=== PATIENT | female | born 1960 | race Caucasian/White ===

== ENCOUNTER 2020-07-01 12:58 | Outpatient (CLI) | payer BC, SELFPAY ==
--- NOTE | ~2020-07-01 | MMUS_ITS ---
EXAMINATION: MM diagnostic mammo implant BI, US breast LT complete HISTORY: Diffuse left breast pain TECHNIQUE: Craniocaudal, mediolateral, and mediolateral oblique 3-D tomosynthesis images with implant displacement of the breasts were performed and synthetic 2-D images were generated. Craniocaudal, m ediolateral oblique, and mediolateral views of the breasts without implant displacement were obtained using full field digital mammography. CAD analysis was submitted and interpreted. High resolution co mplete left breast ultrasound including all four quadrants and the subareolar breast was performed. COMPARISON: 01/27/2020, 01/01/2019 BREAST PARENCHYMAL COMPOSITION: The breasts are heterogeneously dense, which may obscure small masses . FINDINGS: MAMMOGRAPHIC FINDINGS: There is no evidence of suspicious mass, calcification, or architectural distortion in either breast to suggest malignancy. There has been no suspicious interval change. No mammographic correlate is id entified for the patient's reported left breast pain. ULTRASOUND: No sonographic correlate is identified for the patient's left breast pain. IMPRESSION: 1. No specific mammographic or sonographic correlate is identified for the patient's left breast pain . Further evaluation at this time should be based on clinical assessment. Continued follow-up physica l examination is recommended. 2. Recommend routine screening mammography in one year. BI-RADS Category 1: Negative Reviewed, dictated and finalized at location A. IMPRESSION: 1. No specific mammographic or sonographic correlate is identified for the kae ent's left breast pain. Further evaluation at this time should be based on clin ical assessment. Continued follow-up physical examination is recommended. 2. Recommend routine screening mammography in one year. BI-RADS Category 1: Negative
== END 2020-07-01 12:59 | disposition home or self-care (01) ==
PROVIDERS: PCP Family Medicine; Visit Provider Family Medicine
DX: N64.4 Mastodynia (principal)
CPT/HCPCS: 76641; 77066

== ENCOUNTER 2020-07-29 07:18 | Outpatient (RCR) | payer BC, SELFPAY ==
--- NOTE | 2020-07-29 09:05 | STOPEVAL ---
SPEECH THERAPY INITIAL EVALUATION & DISCHARGE: Thank you for referring Ana Maria Miner to [facility].? Upon completion of the evaluation for anomia, it has been determined that no further ST is warranted as described below. Please review, sign, date and return this plan of care/discharge DAISHA. I agree with and certify that the following plan of care is medically necessary. Referring Physician Date Attending Provider: Petra Guevara, Outpatient Past Medical History Past Medical History Source of Past Medical History Patient Neurological History Hx Neurological Disorders No Significant History Cardiovascular History Hx Cardiac Disorders No Significant History Respiratory History Hx Respiratory Disorders No Significant History Gastrointestinal History Hx Gastrointestinal Disorders No Significant History Musculoskeletal History Hx Joint Replacement Yes: knee Evaluation Information Problem Diagnosis anomia Additional Evaluation Detail Pt reports that she has occasional but gradual word finding difficulty. Subjective Information Very pleasant but concerned as Query Text:As Reported By Patient/ to the degree she has been Family having word retrieval issues. 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 Activity of Daily Living Ability Independent Indoor/Home Mobility Independent Community Mobility Independent Stairs Ability Independent Functional Cognition (Planning, Shopping Independent , Taking Medications) Cooking Yes Cleaning Yes Laundry Yes Shopping Yes Driving Yes Home Setting Home Type House Living Situation With Spouse Prior Cognition/Communication Prior Communication Level No Impairment Prior Cognitive Function Able to Function Independently Prior Ability to Handle Finances Independent Language Evaluation Verbal Expression WH Questions (% Accuracy (0-100)) 100 Confrontational Naming (% Accuracy (0- 100 100)) Stating Object Function (% Accuracy (0- 100 100)) Sentence Formation Given a Stimulus Word 100 (% Accuracy (0-100)) Sentence Formation in Spontaneous No Impairments Conversation Connected Speech No Impairments Response Latency No Impairments Overall Verbal Expression Ability No Impairments Comments Related to Verbal Expression No episodes of anomia or word retrieval impairment occurred during the evaluation in spite of the more in depth testing
== END 2020-10-18 14:18 | disposition home or self-care (01) ==
LOC: ANHST 07:18
PROVIDERS: PCP Family Medicine; Visit Provider Family Medicine
DX: R47.01 Aphasia (principal)
CPT/HCPCS: 92523

== ENCOUNTER 2021-11-10 13:34 | Outpatient (CLI) | payer BC, SELFPAY ==
--- NOTE | ~2021-11-10 | XR_ITS ---
XR lumbar spine min 4V DATE: 11/10/2021 13:58 INDICATION: Back pain radiating to right side. No injury. TECHNIQUE: AP, lateral, flexion and extension lateral views COMPARISON: None FINDINGS: The included lower thoracic and lumbar pedicles are intact. Minimal anterolisthesis at L2-3 due to degenerative change at the apophyseal joints. No fracture or bone destruction or spondylolisthesis of the lumbar spine is noted otherwise. There is mild degenerative spurring of the lumbar spine, with minimal loss of interspace height. No instability on flexion or extension. The sacroiliac joints are unremarkable. IMPRESSION: Mild degenerative disc disease Reviewed, dictated and finalized at location B.
== END 2021-11-10 13:35 | disposition home or self-care (01) ==
LOC: ANHIMG 13:37
PROVIDERS: PCP Family Medicine; Visit Provider Neurological Surgery
DX: M51.36 Other intervertebral disc degeneration, lumbar region (principal)
CPT/HCPCS: 72110

== ENCOUNTER 2021-12-01 10:34 | Observation (INO) | payer BC, SELFPAY ==
[2021-12-01] VITALS (10 sets, daily range): BP systolic 132–172; BP diastolic 71–91; PULSE 71–94; RESP 15–20; TEMP 36.4–37.8; O2SAT 99–100; BMI 25.3
--- NOTE | ~2021-12-01 | CT_ITS ---
EXAMINATION: CTA chest PE protocol DATE: 12/01/2021 13:16 CDT INDICATION: Chest pain TECHNIQUE: Computed tomographic angiography (CTA) of the chest was performed with 100 mL Omnipaque-35 0 intravenous contrast. The dose-length product was 362.44 mGy-cm. Maximum intensity projection 3D-re constructions of the aorta and other arteries were constructed by the technologist on a separate work station. Automated exposure control and iterative reconstruction technique were employed. COMPARISON: None. FINDINGS: The study is technically adequate without evidence for pulmonary embolism. Heart size jessica l. There are bilateral breast implants. No significant pleural or pericardial effusion. No thoracic l ymphadenopathy. No evidence for aortic aneurysm or dissection. The upper abdomen is unremarkable. No pneumothorax. There is bilateral lower lobe atelectasis. No endobronchial lesions. Mild thoracic spon dylosis with accentuated kyphosis. No acute osseous abnormality. IMPRESSION: 1. No evidence for pulmonary embolism. 2: Bilateral lower lobe atelectasis. Reviewed, dictated and finalized at location A.
--- NOTE | 2021-12-01 10:46 | ECG_ITS ---
Measurements Intervals [place] Rate: 73 P: 60 IA: 171 QRS: 82 QRSD: 85 T: 59 QT: 369 QTc: 408 Interpretive Statements SINUS RHYTHM NORMAL ECG NO PREVIOUS ECG AVAILABLE FOR COMPARISON Electronically Signed On 12-01-2021 11:39:51 CDT by Memo Mckeon D.O.
[2021-12-01 10:59] LABS: Basophils Percent Auto 0.5 % (0.2-1.2); Eosinophils Absolute Auto 0.1 K/mm3 (0-0.3); Eosinophils Percent Auto 1.6 % (0-4.4); Hematocrit 35.9 % (37.0-47.0); Hemoglobin 11.8 g/dL (12.0-15.0); Immature Granulocyte Absolute 0.03 K/mm3 (0.00-0.031); Immature Granulocyte Percent A 0.3 % (0-0.5); Lymphocytes Percent Auto 17.2 % (18.3-44.2); Mean Corpuscular HGB Conc 32.9 g/dl (32-36); Mean Corpuscular Hemoglobin 31.3 pg (26-34); Mean Corpuscular Volume 95.2 fl (80-100); Mean Platelet Volume 10.5 fl (7.4-10.4); Monocytes Absolute Auto 0.6 K/mm3 (0.1-0.6); Monocytes Percent Auto 7.2 % (2.6-8.5); Neutrophils Absolute Auto 6.4 K/mm3 (1.3-6.7); Neutrophils Percent Auto 73.2 % (45.5-73.1); Platelet Count Result 253 k/mm3 (150-375); Red Blood Count 3.77 M/mm3 (4.2-5.4); Red Cell Distribution Width 13.9 % (11.5-14.5); White Blood Count 8.7 K/mm3 (4.5-10.0)
[2021-12-01 11:11] LABS: Alanine Aminotransferase 24 U/L (6-35); Albumin Level 4.4 g/dL (3.5-5.1); Alkaline Phosphatase 85 U/L (38-126); Anion Gap 11 mmol/L (8-16); Aspartate Amino Transferase 27 U/L (14-36); Bilirubin,Total 0.9 mg/dL (0.2-1.3); Blood Urea Nitrogen 16 mg/dL (7-17); Calcium 9.2 mg/dL (8.4-10.2); Carbon Dioxide 25 mmol/L (22-30); Chloride 104 mmol/L (98-107); Estimated CRCL calculation 77 ml/min; Estimated Glomerular Filt Rate > 60; Glucose 96 mg/dL (65-110); INR 0.9; Lipase 74 U/L (23-300); Prothrombin Time 12.2 Seconds (11.1-14.7); Sodium 140 mmol/L (137-145)
[2021-12-01] MEDS: MORPHINE SULFATE (*CRX) 4 MG/ML INJ IV PUSH (11:11)
[2021-12-01 11:12] LABS: Partial Thromboplastin Time 25.5 SECONDS (22.3-36.8)
[2021-12-01 11:23] LABS: Troponin I < 0.012 ng/mL (0.000-0.034)
--- NOTE | 2021-12-01 12:40 | PC.NURSE ---
Pt in CT.
[2021-12-01 14:08] LABS: Troponin I 0.025 ng/mL (0.000-0.034)
--- NOTE | 2021-12-01 14:11 | ED.GENADULT ---
HPI - General Adult General Chief complaint: Chest Pain Stated complaint: chest pain Time Seen by Provider: 12/01/21 10:53 History of Present Illness HPI narrative: Patient is a 61-year-old female who presents ER with left-sided chest pain. Ongoing since 11/29/2021. Above her breast and wraps around under her shoulder. She has felt it going into her shoulder and upper neck over the last day. Pain is worse with deep breath. No fevers or chills or sweats. No productive cough. Recently traveled to [place] and back by plane. She returned to day before symptom onset. No exertional dyspnea. Related Data Home Medications Medication Instructions Recorded Confirmed albuterol sulfate 90 mcg/actuation 1 inh inhalation Q4-6H PRN cough 11/10/21 11/10/21 aerosol inhaler albuterol sulfate 90 mcg/actuation 1 inh inhalation Q4H 11/10/21 11/10/21 aerosol inhaler conjugated estrogens 0.45 mg 0.45 mg PO DAILY 11/10/21 11/10/21 tablet (Premarin) levothyroxine 75 mcg capsule 75 mcg PO DAILY 11/10/21 11/10/21 vitamin B complex (B 1 tablet PO DAILY 11/10/21 11/10/21 Complex-Vitamin B12 tablet) Allergies Allergy/AdvReac Type Severity Reaction Status Date / Time No Known Drug Allergies Allergy Unknown Unknown Verified 11/10/21 09:03 Review of Systems Review of Systems: All systems reviewed & are unremarkable except as noted in HPI and below Constitutional: Constitutional: Denies chills, Denies fatigue and Denies fever(s) ENT: Denies nasal congestion and Denies sore throat Cardiovascular: Cardiovascular: Reports chest pain, Denies rapid heart rate, Reports radiating jaw, neck or arm pain and Denies slow heart rate Respiratory: Respiratory: Denies cough, Denies dyspnea and Denies wheezing Comments: Pain with inspiration Gastrointestinal: Gastrointestinal: Denies abdominal pain, Denies nausea and Denies vomiting Musculoskeletal: Musculoskeletal: Denies back pain, Denies myalgias, Denies arthralgias and Denies joint swelling [facility] Past Medical History Medical History Carpal tunnel syndrome DDD (degenerative disc disease) Degeneration of lumbar intervertebral disc Fusion, toes Hypothyroidism Sciatica Thyroid disease Surgical History Surgical History H/O: hysterectomy Hx of breast augmentation Total knee replacement status Family History Family History Other Alcoholism Asthma Cancer Depression Heart disease Hypertension Social History Social History Smoking status: Never smoker Alcohol intake: current Substance use: never Substance use type: does not use Exam Narrative: GENERAL: Well-appearing, well-nourished, and in no acute distress. HEAD: Normocephalic, atraumatic. EYES: PERRL and EOMI. CHEST: Clear to auscultation. No respiratory distress. HEART: Regular rate and rhythm. Normal peripheral pulses. Left anterior chest wall tenderness.. No bruising or swelling of the chest. ABDOMEN: Soft, nontender, nondistended. EXTREMITIES: Normal range of motion. No edema. SKIN: Warm, dry, no rash. NEURO: Alert and oriented x3. PSYCH: Normal mood and affect. Course Course Emergency Course: Symptoms certainly seem musculoskeletal in nature as it is reproduced with palpation and with certain movements. Unfortunately patient has had a significant change in her troponin level while being here. Given the fact that she has radiating pain into her shoulder and neck it is felt best to admit for observation after discussing the case with cardiology. They feel patient could likely get a echocardiogram and then be stressed as an outpatient. Vital Signs Vital signs: Vital Signs Temperature 97.6 F 12/01/21 10:39 Pulse Rate 80 12/01/21 10:39 Respiratory Rate 16 12/01/21 10:
[2021-12-01] MEDS: KETOROLAC 30 MG/ML VIAL (*BKC) IV PUSH (15:05)
[2021-12-01 15:58] LABS: SARS-CoV-2 RNA PCR Negative
[2021-12-01 16:45] LABS: Troponin I < 0.012 ng/mL (0.000-0.034)
--- NOTE | 2021-12-01 18:03 | PC.NURSE ---
This patient, Ana Maria Miner, was admitted to IMU Room 202-01. Patient/family oriented to hospital policies and general routines including ID bracelet, bed and alarms, visiting hours, pain management, procedures, bathroom and other care routines, personal items, smoking policy, room service/diet, and visiting hours. Information on how to activate the Rapid Response Team has been discussed. Patient/Family are encouraged to report perceived risks to care and to ask questions if they do not understand what they are told or what they should do.
[2021-12-01] MEDS: HYDROcodone/acetaminophen (*CRX) 5-325 MG TABLET 1 TAB PO (21:01)
[2021-12-02] VITALS (8 sets, daily range): BP systolic 117–149; BP diastolic 57–86; PULSE 64–87; RESP 16–20; TEMP 36.6–37.6; O2SAT 97–100
[2021-12-02] MEDS: HYDROcodone/acetaminophen (*CRX) 5-325 MG TABLET 1 TAB PO ×2 (03:22→09:19)
--- NOTE | 2021-12-02 06:00 | ECHO_ITS ---
Patient Info Name: Ana Maria Miner Age: 61 years : 1960 Gender: Female Ht: 69 in Wt: 171 lbs BSA: 1.95 m2 HR: 68 bpm BP: 149 / 86 mmHg Heart Rhythm: Sinus Rhythm Exam Date: 12/02/2021 9:11 AM Exam Location: [facility] Patient Status: Inpatient Admit Date: 12/01/2021 Staff Ordering Physician: Haroldo Biggs MD Agricultural Engineering Technician: Farooq Jackson RDCS Attending Provider: Andrew Mendoza MD Referring Physician: Kalyan VOGT; Exam Type: CA echo doppler color flow Study Info Indications R07.9 - Chest pain, unspecified Complete two-dimensional, color flow and Doppler transthoracic echocardiogram is performed. Summary 1. Complete two-dimensional, color flow and Doppler transthoracic echocardiogram is performed. 2. Normal left ventricular size and thickness with good contractility of all segments. Ejection fraction 60-65%. Normal diastolic function. 3. Trivial tricuspid regurgitation. 4. No pericardial effusion. 5. Normal sinus rhythm. Left Ventricle Left ventricular chamber dimension is normal. Left ventricular systolic function is normal, estimated at 60-65%. There is no increased left ventricular wall thickness. Left ventricular septal wall motion is normal. The left ventricular diastolic function is normal. Right Ventricle Right ventricular chamber dimension is normal. Right ventricular systolic function is normal. Left Atria Left atrial chamber dimension is normal. Right Atria Right atrial chamber dimension is normal. Aortic Valve The aortic valve is trileaflet. There is no aortic valve sclerosis. There is no aortic valve stenosis. There is no aortic valve regurgitation. Pulmonic Valve The pulmonic valve is normal. There is no pulmonic valve stenosis. There is no pulmonic regurgitation. Mitral Valve The mitral valve has normal leaflets. There is no mitral valve stenosis. There is no mitral valve regurgitation. Tricuspid Valve The tricuspid valve leaflets are normal. There is no significant tricuspid valve stenosis. There is trace tricuspid valve regurgitation. No pulmonary hypertension, estimated pulmonary arterial systolic pressure is Empty. Pericardium/Pleural The pericardium appears normal. There is no pericardial effusion. Inferior Vena Cava Normal inferior vena cava with >50% collapse upon inspiration consistent with Empty right atrial pressure, Empty. Aorta The aortic root size at the sinus of Valsalva is normal. The prox ascending aorta size is normal. Left Ventricular Outflow Tract Name Value Normal LVOT 2D LVOT Diameter 1.8 cm LVOT Doppler LVOT Peak Gradient 8 mmHg LVOT Mean Gradient 5 mmHg LVOT VTI 30 cm LVOT VTI/AV VTI Ratio 1.0 LVOT Stroke Volume 78 ml LVOT CO 5.9 l/min LVOT CI 3.0 l/min/m2 Mitral Valve Name
--- NOTE | 2021-12-02 09:16 | PM.IMHP ---
H&P: HPI History of Present Illness Date/Time: 12/02/21 09:16 Chief Complaint: Chest pain Narrative: Almaz Miner is a 61-year-old female who was admitted with chest pain. The patient began having problems on Saturday the with left upper chest discomfort radiating to the left scapular area and upper neck. She has been tender to touch, was pleuritic initially, it hurts with very intensely with certain movements such as bending over or twisting. No unusual physical activity recently. No cough or fevers, no SOB. No improvement with ibuprofen up to 800 mg at home. She did go to the chiropractor and he popped 2 ribs on Saturday, after the pain began but that did not help any. Since admission she found relief with Toradol, but no relief with morphine or hydrocodone. She was admitted because her troponins went from normal up to 0.025 and then now they are back to normal. The patient had a temperature of a 100.1? at 8:00 p.m. and 99.7 at 4:00 p.m.. Normal WBC count. History of cervical spine problems and low back problems. No hypertension, diabetes, smoking, family history of CAD, or high cholesterol. Review of Systems Constitutional: Constitutional: Denies fever(s) Cardiovascular: Cardiovascular: Reports chest pain, Denies pedal edema, Denies lightheadedness and Denies dyspnea Respiratory: Respiratory: Denies chest congestion and Denies dyspnea Comments: History of asthma Gastrointestinal: Gastrointestinal: Denies abdominal pain and Denies hematochezia Musculoskeletal: Musculoskeletal: Reports back pain and Reports neck pain Integumentary/Breasts: Skin/Breast: Reports system reviewed and no additional complaints, except as docu Neurologic: Reports system reviewed and no additional complaints, except as documented, Denies behavioral changes and Denies confusion Psychiatric: Psychiatric: Denies behavioral changes and Denies confusion [facility] Past Medical History Medical History Carpal tunnel syndrome DDD (degenerative disc disease) Degeneration of lumbar intervertebral disc Fusion, toes Hypothyroidism Sciatica Thyroid disease Surgical History Surgical History H/O: hysterectomy Hx of breast augmentation Total knee replacement status Family History Family History Mother Asthma Hypertension Father Aortic valve calcification Aortic valve replacement for aortic stenosis Hypertension Heart disease Aortic stenosis, no CAD Sibling Anxiety Social History Social History (Updated 12/02/21 @ 10:58 by Anel Newell MD) Social History: Retired, worked as a legal process specialist, with 2 children. Smoking status: Never smoker Alcohol intake: current Substance use: never Substance use type: does not use Spiritual care concerns: No Meds Home Medications and Allergies Home Medications Medication Instructions Recorded Confirmed Type albuterol sulfate 90 mcg/actuation 1 inh inhalation Q4-6H PRN sob 11/10/21 12/01/21 History aerosol inhaler levothyroxine 75 mcg capsule 75 mcg PO DAILY 11/10/21 12/01/21 History conjugated estrogens 0.625 mg/gram 0.5 applic vaginal USEASDIRECTD 12/01/21 12/01/21 History vaginal cream (Premarin) Allergies Allergy/AdvReac Type Severity Reaction Status Date / Time No Known Drug Allergies Allergy Unknown Unknown Verified 11/10/21 09:03 Vital Signs Vital Signs - 24 hr 12/01/21 10:39 12/01/21 11:27 12/01/21 11:57 Temperature 97.6 F Pulse Rate 80 73 74 Respiratory Rate 16 15 16 Blood Pressure 172/81 H 139/91 H 136/72 Pulse Oximetry 100 99 100 Oxygen Delivery Room Air 12/01/21 13:38 12/01/21 16:04 12/01/21 17:03 Temperature Pulse Rate 74 73 Respiratory Rate 16 15 15 Blood Pressure 132/74 134/75 Pulse Oximetry 100 100 100 Oxygen Deliv
--- NOTE | 2021-12-02 09:20 | ECG_ITS ---
Measurements Intervals [place] Rate: 81 P: 56 GA: 166 QRS: 56 QRSD: 104 T: 37 QT: 354 QTc: 411 Interpretive Statements SINUS RHYTHM NORMAL ECG COMPARED TO ECG 12/01/2021 10:45:58 NO SIGNIFICANT CHANGES Electronically Signed On 12-02-2021 11:15:29 CDT by Memo Mckeon D.O.
[2021-12-02] MEDS: LEVOTHYROXINE SODIUM 75 MCG TABLET PO (11:39)
[2021-12-02] MEDS: KETOROLAC 30 MG/ML VIAL (*BKC) IV PUSH (11:40)
--- NOTE | 2021-12-19 19:04 | PM.DS ---
DS: Admitting Diagnosis Discharge Date 12/02/21 Admitting Diagnosis Chest pain DS: Discharge Diagnosis Discharge Diagnosis (1) Atypical chest pain: Code(s): R07.89 - Other chest pain Status: Acute Assessment and Plan: Chest pain, likely due to viral pleurisy with a component of musculoskeletal chest pain since the patient had some tenderness to touch. Troponins were negative. Echo showed EF of 60-65% and no pericardial effusion. CTA showed no evidence of pulmonary embolism or pericardial effusion, but she did have bilateral atelectasis. Two EKGs showed no ischemic changes. ACS was ruled out.Responded best to Toradol. The patient was given the another dose of IV Toradol prior to discharge and discharge with Indomethacin. (2) Pleurisy: Code(s): R09.1 - Pleurisy Status: Acute Assessment and Plan: The patient was admitted with atypical chest pain, somewhat pleuritic in nature. Hurt intensely with certain positions. She had a low-grade fever. Troponins were negative. She responded to Toradol, not much response to narcotics. (3) Atelectasis: Code(s): J98.11 - Atelectasis Status: Acute Assessment and Plan: Patient had some rales on exam and atelectasis, probably due to the pleuritic nature of her chest discomfort. Encouraged cough and deep breathing. Plan Discharged on indomethacin Usual home medications were continued Encourage deep breathing, stay out of bed Call if further problems Close follow-up with Dr. Guevara DS: Summary Hospital Course Reason for hospitalization: Chest pain Hospital Course: See above Status at Discharge Cognitive/behavioral status at discharge: At baseline Functional status at discharge: independent ambulation Overall status at discharge: patient is back to baseline Time Spent with Patient Time attestation: Total time spent providing and/or coordinating discharge services: 35 minutes. Exam Narrative: See admitting H&P for physical exam DS: Data Data Completed and Pending Completed studies during hospitalization: CTA of the chest negative for PE, showed atelectasis Echo showed normal LV function, no pericardial effusion Troponins were negative Chest x-ray showed atelectasis Pending studies at discharge: None Labs on day of discharge: Negative troponins Discharge Plan Discharge Attending physician on discharge: Anel Newell Discharging Clinician: Anel Newell Anticipated Discharge Date/Time: 12/02/21 14:19 Patient Disposition: Home, Self-Care Activity: unlimited Diet: heart healthy Discharge Instructions: I think you will improve in the next 2 or 3 days. However, call Dr. Guevara on Saturday and give her an update. The prescription anti-inflammatory, indomethacin, can cause stomach problems such as indigestion etc. Take Tums or [id number] Pepcid if this is a problem. Try to take deep breaths and stay out of bed as much as possible to get air to the bottom of your lungs. I sent the prescription for the anti-inflammatory to your [facility]'s pharmacy. Please call Dr. Newell if you have any further questions or problems: [facility]: [phone]. Address: [address] [place] [address] [address], [address], [place] [address]. Patient Instructions: Antibiotic Form Stand Alone Forms: General Discharge Information Follow-up/Referrals: Paola,Petra Patton MD [Primary Care Provider] - Discharge Medications: New indomethacin 75 mg capsule, extended release 75 mg PO TID Qty: 20 0RF Rx Instructions: Take with food. Continued albuterol sulfate 90 mcg/actuation HFA aerosol inhaler 1 inh inhalation Q4-6H PRN (Reason: sob) Label Comments: Uses infrequently, patient reports only 2-3 times yearly levothyroxine 75 mcg capsule 75 mcg PO DAILY Premarin 0.625 mg/gram cream 0.5 applic vaginal USEASDIRECTD Rx Instructio
== END 2021-12-02 15:57 | disposition home or self-care (01) ==
LOC: ANHED 11:11 → ANHIMU 17:33
PROVIDERS: Admitting Provider Specialist; Emergency Provider Emergency Medicine; PCP Family Medicine; Visit Provider Internal Medicine Cardiovascular Disease
DX: R07.89 Other chest pain (principal); J98.11 Atelectasis; R01.1 Cardiac murmur, unspecified; E03.9 Hypothyroidism, unspecified; Z79.51 Long term (current) use of inhaled steroids; Z20.822 Contact with and (suspected) exposure to COVID-19
CPT/HCPCS: 36415; 71275; 80053; 83690; 84484; 85025; 85610; 85730; 93005; 93306; 96374; 96375; 99285; A9270; C9803; G0378; J1885; J2270; Q9967; U0003; U0005

== ENCOUNTER 2023-05-06 14:23 | Outpatient (CLI) | payer BC, SELFPAY ==
--- NOTE | ~2023-05-06 | US_ITS ---
EXAMINATION: US thyroid DATE: 05/06/2023 14:47 INDICATION: Nontoxic goiter. TECHNIQUE: Multiple ultrasound images of the thyroid were obtained. COMPARISON: Ultrasound 12/10/2016 FINDINGS: The right thyroid lobe measures 5.2 x 1.5 x 1.6 cm. The left thyroid lobe measures 4.7 x 1.7 x 1.6 c m. The thyroid demonstrates heterogeneous echogenicity. In the right thyroid lobe, there is a 10 mm solid, hypoechoic, wider than tall nodule with ill-defined margin without echogenic foci (TI-RADS TR4 ). In the left thyroid lobe, there is a 12 mm solid, isoechoic, wider than tall nodule with smooth ma rgin without echogenic foci (TR4), stable from 12/10/16. IMPRESSION: 1. Thyroid nodules. Thyroid ultrasound is recommended in one year. Reviewed, dictated and finalized at location A. ION ANALYST
== END 2023-05-06 14:24 | disposition home or self-care (01) ==
PROVIDERS: PCP Family Medicine; Visit Provider Family Medicine
DX: E04.2 Nontoxic multinodular goiter (principal)
CPT/HCPCS: 76536

== ENCOUNTER 2023-07-22 13:41 | Outpatient (CLI) | payer BC, SELFPAY ==
--- NOTE | ~2023-07-22 | XR_ITS ---
EXAM: XR cervical spine 4-5V DATE: 07/22/2023 13:55 HISTORY: CERVICALGIA . COMPARISON: None available. FINDINGS: Craniocervical association and atlantoaxial joint are aligned. Mild degenerative change at the atlantodental interval. No prevertebral soft tissue swelling. Vertebral bodies are aligned. Vert ebral body heights are maintained. Normal disc spaces. Mild disc space narrowing and marginal osteoph ytosis at C4-5 and C5-6. Mild multilevel facet sclerosis and hypertrophy. IMPRESSION: Mild multilevel degenerative disc disease and facet arthropathy. Reviewed, dictated and finalized at location K.
== END 2023-07-22 13:42 ==
LOC: MICIMG 13:43
PROVIDERS: PCP Family Medicine; Visit Provider Family Medicine
DX: M50.30 Other cervical disc degeneration, unspecified cervical region (principal)
CPT/HCPCS: 72050

== ENCOUNTER 2023-12-21 11:31 | Outpatient (CLI) | payer BC, SELFPAY ==
--- NOTE | ~2023-12-21 | MR_ITS ---
EXAMINATION: MR cervical spine wo con DATE: 12/21/2023 12:16 INDICATION: Neck pain. Degeneration of cervical intervertebral disc. TECHNIQUE: Magnetic resonance imaging (MRI) of the cervical spine was performed without intravenous c ontrast. COMPARISON: Cervical spine radiographs 07/22/2023 FINDINGS: Alignment is normal. Vertebral body heights are normal in cervical spine. There is mildly d ecreased disc height at C4-C5. The spinal cord signal intensity is normal. The following disc levels are specifically discussed: C2-C3: The disc does not extend beyond the endplate margin. There is moderate right uncovertebral ana luisa nt osteoarthritis. There is mild bilateral facet joint osteoarthritis. There is mild right neural for aminal stenosis. There is no central canal stenosis. C3-C4: The disc does not extend beyond the endplate margin. There is no uncovertebral joint osteoarth ritis. There is mild right facet joint osteoarthritis. There is no neural foraminal stenosis. There i s no central canal stenosis. C4-C5: The disc is bulging. There is mild bilateral uncovertebral joint osteoarthritis. There is bhavya re right and moderate left facet joint osteoarthritis. There is mild bilateral neural foraminal steno sis. There is mild central canal stenosis. C5-C6: There is a central protrusion. There is mild left uncovertebral joint osteoarthritis. There is severe bilateral facet joint osteoarthritis. There is mild bilateral neural foraminal stenosis. Ther e is no central canal stenosis. C6-C7: The disc does not extend beyond the endplate margin. There is no uncovertebral joint osteoarth ritis. There is mild bilateral facet joint osteoarthritis. There is no neural foraminal stenosis. The re is no central canal stenosis. C7-T1: The disc does not extend beyond the endplate margin. There is no uncovertebral joint osteoarth ritis. There is moderate bilateral facet joint osteoarthritis. There is mild left neural foraminal st enosis. There is no central canal stenosis. IMPRESSION: 1. Mild cervical spondylosis. Reviewed, dictated and finalized at location A.
== END 2023-12-21 11:32 | disposition home or self-care (01) ==
LOC: MICIMG 11:33
PROVIDERS: PCP Neurological Surgery; Visit Provider Nurse Practitioner Family
DX: M50.30 Other cervical disc degeneration, unspecified cervical region (principal); M47.812 Spondylosis without myelopathy or radiculopathy, cervical region
CPT/HCPCS: 72141

== ENCOUNTER 2024-06-29 12:50 | Outpatient (CLI) | payer BC, SELFPAY ==
--- NOTE | ~2024-06-29 | US_ITS ---
US thyroid INDICATION: Nontoxic thyroid nodule TECHNIQUE: Real-time sonographic images of the thyroid gland were obtained. COMPARISON: Ultrasound dated 05/06/2023 FINDINGS: The right thyroid lobe measures 5.2 x 1.5 x 1.6 cm. The left thyroid lobe measures 4.7 x 1 .7 x 1.6 cm. There is heterogeneous echotexture in both thyroid lobes. In the left lobe there is a he terogeneous mixed hyperechoic and hypoechoic mass measuring 1.3 x 0.9 x 0.9 cm with posterior acousti c enhancement, TR 4. There are multiple masses of the right lobe without significant change from prio r examinations, largest measuring approximately 6 mm. Isthmus measures 4 mm. IMPRESSION: 1. Stable bilateral thyroid nodules, likely benign. Twelve-month follow-up ultrasound recommended.. Reviewed, dictated and finalized at location A. IMPRESSION: 1. Stable bilateral thyroid nodules, likely benign. Twelve-month follow-up ult rasound recommended..
== END 2024-06-29 12:51 | disposition home or self-care (01) ==
LOC: MICIMG 12:52
PROVIDERS: PCP Nurse Practitioner Family; Visit Provider Nurse Practitioner Family
DX: E04.2 Nontoxic multinodular goiter (principal)
CPT/HCPCS: 76536